=== PATIENT | male | born 1935 | race Caucasian/White ===

== ENCOUNTER 2024-02-17 08:59 | Day surgery (SDC) | payer OTHER, MEDICARE ==
[2024-02-10 14:36] VITALS: BMI 28.1
[2024-02-17] MEDS ORDERED: BUPIVACAINE HCL/PF 0.5% (5MG/ML) 10 ML VIAL ONE (11:05)
[2024-02-17] MEDS ORDERED: ERYTHROMYCIN 0.5% OPHTHALMIC OINTMENT 3.5 GM TUBE ONE (11:05)
[2024-02-17] MEDS ORDERED: ceFAZolin SODIUM 1 GM VIAL ONE ×2 (11:05→11:35)
[2024-02-17] MEDS ORDERED: POVIDONE-IODINE 5% OPHTHALMIC PREP 30 ML SOLUTION ONE (11:05)
[2024-02-17] MEDS ORDERED: TETRACAINE 0.5% OPHTH SOLN 2 ML BOTTLE ONE (11:05)
[2024-02-17] MEDS ORDERED: LIDOCAINE 1%/EPI 1:100000 (20 ML MULTI DOSE VIAL) ONE (11:05)
[2024-02-17] MEDS ORDERED: MIDAZOLAM HCL 2 MG/2 ML SINGLE DOSE VIAL ONE (11:19)
[2024-02-17] MEDS ORDERED: PROPOFOL 20 ML ONE ×4 (11:19→13:00)
[2024-02-17] MEDS ORDERED: DEXAMETHASONE SOD PHOSPHATE 4 MG/1 ML VIAL ONE (11:35)
[2024-02-17] MEDS ORDERED: ONDANSETRON 4 MG/2 ML VIAL ONE (11:35)
[2024-02-17] MEDS ORDERED: GLYCOPYRROLATE 0.2 MG/1 ML VIAL ONE (11:35)
[2024-02-17] MEDS ORDERED: oxyCODONE HCL 5 MG TABLET PO PRN (13:21)
[2024-02-17] MEDS ORDERED: ONDANSETRON 4 MG/2 ML VIAL IVPUSH PRN (13:21)
[2024-02-17] MEDS: ACETAMINOPHEN 1000 MG/100 ML BAG IVPB ONE (13:25)
[2024-02-17] MEDS ORDERED: LACTATED RINGERS SOLUTION 1,000 ML IV SCH (13:30)
[2024-02-17] MEDS ORDERED: FENTANYL CITRATE/PF 50 MCG/ML VIAL ONE (13:55)
[2024-02-17 15:31] VITALS: RESP 18
[2024-02-17 15:41] VITALS: BP 148/86; PULSE 60; TEMP 97.3
== END 2024-02-17 16:00 | disposition home or self-care (01) ==
LOC: FASU 08:59
PROVIDERS: ATTEND Ophthalmology
PROC: 08SQ0ZZ Reposition Right Lower Eyelid, Open Approach (ICD-10-PCS; 2024-02-17)
PROC: 08SR0ZZ Reposition Left Lower Eyelid, Open Approach (ICD-10-PCS; principal; 2024-02-17 11:46)
DX: H02.102 Unspecified ectropion of right lower eyelid (principal); H02.105 Unspecified ectropion of left lower eyelid; H04.521 Eversion of right lacrimal punctum; H04.522 Eversion of left lacrimal punctum; H04.223 Epiphora due to insufficient drainage, bilateral
CPT/HCPCS: 94760; J0131